=== PATIENT | female | born 1950 | race Caucasian/White ===

== ENCOUNTER 2018-01-21 20:48 | Emergency (ER) | payer OTHER ==
--- NOTE | 2018-01-21 21:20 | PDOC ---
Rapid Medical Evaluation Time Seen by Provider: 01/21/18 21:14 Medical Evaluation: 01/21/18 21:14 I have performed a brief in-person evaluation of this patient. The patient presents with a chief complaint of: fall in bathroom, pain to left shoulder/arm, denies LOC/chest pain/sob Pertinent physical exam findings: developing hematoma to R forehead, pulses intact, TTP to L shoulder/arm I have ordered the following: xrays The patient will proceed to the ED for further evaluation. Discharge Disposition - Diagnosis Fall - Referrals - Patient Instructions - Post Discharge Activity
[2018-01-21 21:22] VITALS: BP 165/90; PULSE 98; TEMP 98.8; BMI 23.8
--- NOTE | 2018-01-21 21:41 | PDOC ---
History of Present Illness - General Chief Complaint: Pain Stated Complaint: FALL, ARM INJURY Time Seen by Provider: 01/21/18 21:14 History Source: Patient Exam Limitations: No Limitations - History of Present Illness Initial Comments: 01/21/18 22:22 67-year-old woman without significant past medical history presents emergency Department with left shoulder pain status post slip and fall on the bathtub. Patient states she reached for Her towel which was on the other side of the bathroom when her foot slipped causing her to fall down striking her head and left shoulder on floor. Patient denies any loss of consciousness, blurry vision , dizziness, nausea, vomiting, numbness or tingling to the left arm or weakness to the left arm. Past History - Past Medical History Allergies/Adverse Reactions: Allergies Allergy/AdvReac Type Severity Reaction Status Date / Time No Known Allergies Allergy Verified 01/21/18 21:18 Home Medications: Ambulatory Orders Oxycodone HCl/Acetaminophen [Percocet 5-325 mg Tablet] 1 tab PO Q6H PRN #20 tablet MDD 4 01/21/18 Pantoprazole Sodium 40 mg PO ASDIR 01/21/18 COPD: No GI Disorders: Yes (GERD) - Surgical History Appendectomy: Yes Cholecystectomy: Yes - Suicide/Smoking/Psychosocial Hx Smoking History: Never smoked Have you smoked in the past 12 months: No Information on smoking cessation initiated: No Hx Alcohol Use: No Drug/Substance Use Hx: No Substance Use Type: None Review of Systems - Review of Systems Able to Perform ROS?: Yes Is the patient limited Mongolian proficient: No Constitutional: No: Symptoms Reported HEENTM: No: Symptoms Reported Respiratory: No: Symptoms reported Cardiac (ROS): No: Symptoms Reported ABD/GI: No: Symptoms Reported : No: Symptoms Reported Musculoskeletal: Yes: See HPI Integumentary: No: Symptoms Reported Neurological: Yes: See HPI Endocrine: No: Symptoms Reported Hematologic/Lymphatic: No: Symptoms Reported *Physical Exam - Vital Signs Last Vital Signs Temp Pulse Resp BP Pulse Ox 98.8 F 98 H 20 165/90 98 01/21/18 21:19 01/21/18 21:19 01/21/18 21:19 01/21/18 21:19 01/21/18 21:19 - Physical Exam General Appearance: Yes: Appropriately Dressed. No: Apparent Distress HEENT: positive: Normal ENT Inspection, Other (no hemotympanum. hematoma present above right orbit) Neck: positive: Trachea midline, Supple Respiratory/Chest: positive: Lungs Clear, Normal Breath Sounds. negative: Respiratory Distress, Accessory Muscle Use Cardiovascular: positive: Regular Rhythm, Regular Rate. negative: Murmur Gastrointestinal/Abdominal: positive: Normal Bowel Sounds, Soft. negative: Tender Musculoskeletal: positive: Normal Inspection. negative: CVA Tenderness Extremity: positive: Normal Capillary Refill, Normal Inspection, Tender (Left shoulder and humerus). 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 EOMI Cranial nerves II through XII intact No hemotympanum No septal hematomas noted Tenderness to the left humerus No tenderness to elbow or forearm Restrictive range of motion of the left shoulder No bony deformity noted over palpation of the clavicle or scapula Lungs clear to auscultation bilaterally. RRR. No murmurs, rub or gallop noted. Abdomen soft nontender nondistended. X-ray of the left shoulder as read by me: Displaced fracture of the humeral head through the surgical neck. Morphine [address] of the head as read by Dr. Ward: No CT evidence of acute intracranial pathology. sling to left shoulder Discharge to follow-up with Dr. Wright *DC/Admit/Observation/Transfer Diagnosis at time of Disposition: Fall Qualifiers: Encounter type: initial encounter Qualified Code(s): W19.XXXA - Unspecified fall, initial encounter Fracture of humeral head, left, closed Qualifiers: Encounter type: initial encounter Qualified Code(s): S42.292A - Other displaced fracture of upper end of left humerus, initial encounter for closed fracture - Discharge Dispostion Disposition: HOME Condition at time of disposition: Stable Admit: No - Prescriptions Prescriptions: Oxycodone HCl/Acetaminophen [Percocet 5-325 mg Tablet] 1 tab PO Q6H PRN #20 tablet MDD 4 PRN Reason: Severe Pain - Referrals Referrals: Chintan Penny [Primary Care Provider] - Mayito Wright MD [Staff Physician] - - Patient Instructions Printed Discharge Instructions: DI for Shoulder Fracture Additional Instructions: Take Tylenol or Motrin as needed for pain. Follow manufacturers instructions for appropriate dosage. Apply ice for 20 minutes and removed for at least 20 minutes before reapplying the ice. Keep your left arm in a sling at all times until directed to stop by an orthopedist. You've been given the number for an orthopedist. Call for evaluation as soon as possible. Return to emergency department for discoloration of the hand, numbness or tingling to the hand, worsening pain, or any other concerns. Thank you very much for choosing us to provide your emergent healthcare needs. Dr. Mayito Wright has orthopedic clinic hours for Medicare/Medicaid Orthopedic referral patients Office is located on [facility] ; call for appointment Clinic is open Wednesday from 9 AM to 12 noon and afternoon from to 4pm - Post Discharge Activity Forms/Work/School Notes: Back to Work
[2018-01-21] MEDS ORDERED: morphine CARPU-JECT 2 MG/1 ML DISP.SYRIN IM ONE (22:11)
[2018-01-21] MEDS ORDERED: morphine SULFATE 4 MG/ML VIAL ONE (22:19)
== END 2018-01-21 23:09 | disposition home or self-care (01) ==
LOC: JERFT 20:48
DX: S42.292A Other displaced fracture of upper end of left humerus, initial encounter for closed fracture (principal); S00.83XA Contusion of other part of head, initial encounter; W18.2XXA Fall in (into) shower or empty bathtub, initial encounter; Y93.E1 Activity, personal bathing and showering; Y92.012 Bathroom of single-family (private) house as the place of occurrence of the external cause; Y99.8 Other external cause status
CPT/HCPCS: 70450-TC; 73030-TC-LT-FY; 73060-TC-LT-FY; 99281-25